=== PATIENT | male | born 1975 | race Caucasian/White ===

== ENCOUNTER 2016-12-20 04:56 | Emergency (ER) | payer MEDICAID ==
[~2016-12-20 04:56] MED LIST: AMOXICILLIN PO; AUGMENTIN PO; BACTRIM DS TABL1 TA1 PO; CATAFLAM50 MG PO; DICYCLOMINE HCL20 MG PO; FLEXERIL PO; KEFLEX500 M1 PO; LORTAB 10/500 T1 TAB PO; NO MEDICATIONS; TYLENOL #3 PO; ULTRAM PO; UNKNOWN ANTIBIOTIC
== END 2016-12-20 08:48 | disposition home or self-care (01) ==
LOC: SED 04:56
DX: T40.1X1A Poisoning by heroin, accidental (unintentional), initial encounter (principal); F17.200 Nicotine dependence, unspecified, uncomplicated
CPT/HCPCS: 99284